=== PATIENT | male | born 1980 | race African-American/Black ===

== ENCOUNTER 2019-03-15 13:55 | Emergency (ER) | payer SELFPAY ==
--- NOTE | 2019-03-15 15:07 | RAD ---
LEFT HIP RADIOGRAPHS TWO VIEWS: 03/15/2019 PROVIDED CLINICAL HISTORY: Pain. COMPARISON: 09/19/2014 FINDINGS: Postoperative changes of left hip arthroplasty are demonstrated, without evidence for hardware compli cation. No evidence for fracture or other acute osseous abnormality. If there is persistent clinica l concern, conservative management and follow-up imaging are advised. IMPRESSION: As above. POS: OFF
--- NOTE | 2019-03-15 15:09 | RAD ---
LEFT KNEE FOUR VIEWS: HISTORY: Left knee pain. Recent left hip surgery. FINDINGS: Severe bony demineralization. Fairly extensive increase in the trabecular markings of the distal fem ur and proximal tibia. Given the previously noted abnormal changes involving the hips and left shoul davi, evidence for extensive avascular necrosis/bone infarcts, these changes could represent diffuse c hanges of bone infarcts. This could represent some component of severe disuse osteoporosis. IMPRESSION: 1. No evidence for acute fracture or dislocation. 2. Prominent abnormal trabecular appearance to the distal femur and proximal tibia. The possibiliti es include that of extensive bone infarcts. The possibility of some disuse osteoporosis, as well, is a consideration, but no acute fracture or dislocation. POS: [facility]
--- NOTE | 2019-03-15 16:07 | ULT ---
Venous duplex sonogram left lower extremity HISTORY: Left leg pain and edema. FINDINGS: The left common femoral vein and greater saphenous junction were evaluated along with the f emoral, deep femoral, popliteal, and posterior tibial veins. There is good color and spectral Doppler flow, compression, and augmentation. Reactive appearing lymph nodes at the left groin. Sonogr aphic survey of the area of pain inferior to the knee shows no focal lesion. IMPRESSION: No sonographic evidence of DVT within the left lower extremity.
[2019-03-15] MEDS ORDERED: Morphine 4 MG/ML VIAL ONE (18:08)
[2019-03-15] MEDS ORDERED: Ondansetron PF 4 MG/2 ML Vial ONE (18:08)
[2019-03-15 18:38] LABS: Hemoglobin 9.2 g/dL (14.0-18.0); Mean Corpuscular HGB CONC 33.7 g/dL (32.0-36.0); Mean Corpuscular Hemoglobin 29.6 pg (27.0-31.0); Mean Platelet Volume 7.4 fL (7.4-10.4); Platelet Count 491 thou/uL (130-400); RBC Distribution Width 18.9 % (11.5-14.5); Red Blood Cell (RBC) Count 3.12 mill/uL (4.70-6.10); White Blood Cell (WBC) Count 17.4 thou/uL (4.8-10.8)
[2019-03-15 18:54] LABS: ALT (SGPT) 24 U/L (8-55); AST (SGOT) 45 U/L (5-34); Albumin 3.8 g/dL (3.5-5.0); Alkaline Phosphatase 87 U/L (40-150); Anion Gap 11 mmol/L (10-20); BUN (Urea Nitrogen) 6 mg/dL (8.9-20.6); Bilirubin, Total 4.5 mg/dL (0.2-1.2); CRP (Inflammatory) 4.38 mg/dL (= or < 0.5); Calc. Creatinine Clearance 0 mL/min (70-130); Carbon Dioxide 29 mmol/L (22-29); Chloride 99 mmol/L (98-107); Estimated GFR-MDRD Greater than 90; Globulin 4.7 g/dL (2.4-3.5); Glucose 98 mg/dL (70-105); Protein, Total 8.5 g/dL (6.0-8.3); Sodium 136 mmol/L (136-145)
[2019-03-15 18:58] LABS: Anisocytosis SLIGHT = 6-15 cells (100X) (0-5/hpf); Band 1 % (5-11); Hypochromia SLIGHT = 6-15 cells (100X) (0-5/hpf); Lymphocytes 25 % (21-51); MDiff Complete? YES; Monocytes 6 % (0-10); Neutrophil 68 % (42-75); Platelet Morphology Comment Appears Increased; Poikilocytosis SLIGHT = 6-15 cells (100X) (0-5/hpf); Polychromasia SLIGHT = 2-3 cells (100X) (0-2/hpf); Sickle Cells SLIGHT = 1-5 cells (100X) (None Seen); Target Cells SLIGHT = 2-5 cells (100X) (0-1/hpf); Tear Drops SLIGHT = 2-5 cells (100X) (0-1/hpf)
[2019-03-15 19:04] LABS: Potassium 2.7 mmol/L (3.5-5.1)
[2019-03-15] MEDS ORDERED: Potassium Chloride 20 MEQ TAB ONE (19:21)
[2019-03-15] MEDS ORDERED: Potassium Chloride 20 MEQ/100 ML PREMIX BAG ONE (19:21)
[2019-03-15] MEDS ORDERED: HYDROcodone/Acetaminophen 5/325 mg Tablet ONE (19:50)
== END 2019-03-15 20:49 | disposition home or self-care (01) ==
LOC: ERS 13:55
DX: M87.9 Osteonecrosis, unspecified (principal); D57.1 Sickle-cell disease without crisis; Z87.891 Personal history of nicotine dependence
CPT/HCPCS: 80053; 83735; 85025; 85652; 86140; 96361; 96365; 96375; J2270; J2405; J3480

== ENCOUNTER 2019-04-13 21:36 | Emergency (ER) | payer OTHER, SELFPAY ==
[2019-04-13] MEDS ORDERED: diphenhydrAMINE 50 MG/ML VIAL ONE (22:37)
[2019-04-13] MEDS ORDERED: Acetaminophen 500 MG TAB ONE (22:38)
[2019-04-13 22:43] LABS: Hemoglobin 9.2 g/dL (14.0-18.0); Mean Corpuscular HGB CONC 33.4 g/dL (32.0-36.0); Mean Corpuscular Hemoglobin 29.2 pg (27.0-31.0); Mean Corpuscular Volume 87.4 fL (78.0-98.0); Mean Platelet Volume 6.1 fL (7.4-10.4); Platelet Count 446 thou/uL (130-400); RBC Distribution Width 18.8 % (11.5-14.5); Red Blood Cell (RBC) Count 3.14 mill/uL (4.70-6.10); White Blood Cell (WBC) Count 16.4 thou/uL (4.8-10.8)
[2019-04-13 22:51] LABS: Anisocytosis MODERATE=16-30 cells (100X) (0-5/hpf); Elliptocytes SLIGHT = 2-5 cells (100X) (0-1/hpf); Eosinophils 1 % (0-10); Lymphocytes 41 % (21-51); MDiff Complete? YES; Monocytes 3 % (0-10); Neutrophil 55 % (42-75); Platelet Morphology Comment Appears Increased; Schistocytes SLIGHT = 2-5 cells (100X) (0-1/hpf); Sickle Cells SLIGHT = 1-5 cells (100X) (None Seen); Target Cells SLIGHT = 2-5 cells (100X) (0-1/hpf)
[2019-04-13 22:54] LABS: ALT (SGPT) 10 U/L (8-55); AST (SGOT) 26 U/L (5-34); Albumin 3.8 g/dL (3.5-5.0); Alkaline Phosphatase 79 U/L (40-150); Anion Gap 12 mmol/L (10-20); BUN (Urea Nitrogen) 8 mg/dL (8.9-20.6); Bilirubin, Total 3.8 mg/dL (0.2-1.2); Calc. Creatinine Clearance 0 mL/min (70-130); Calcium 9.3 mg/dL (7.8-10.44); Carbon Dioxide 24 mmol/L (22-29); Chloride 104 mmol/L (98-107); Estimated GFR-MDRD Greater than 90; Globulin 5.1 g/dL (2.4-3.5); Glucose 90 mg/dL (70-105); Potassium 3.4 mmol/L (3.5-5.1); Protein, Total 8.9 g/dL (6.0-8.3); Sodium 137 mmol/L (136-145)
[2019-04-13 23:16] LABS: Reticulocyte Count 6.7 % (0.5-1.5)
== END 2019-04-14 04:30 | disposition home or self-care (01) ==
LOC: SCSER 21:36
DX: D57.00 Hb-SS disease with crisis, unspecified (principal); G89.29 Other chronic pain; M25.562 Pain in left knee; Z87.891 Personal history of nicotine dependence; Z79.891 Long term (current) use of opiate analgesic
CPT/HCPCS: 80053; 85025; 85046; 85652; 86140; 94760; 96361; 96365; 96375; J1170; J1200

== ENCOUNTER 2019-06-07 13:36 | Emergency (ER) | payer OTHER ==
[~2019-06-07 13:36] MED LIST: Iopamidol 370 76% 100 ML VIAL ONE
[2019-06-07] MEDS ORDERED: Morphine 4 MG/ML VIAL ONE ×2 (14:02→14:28)
[2019-06-07] MEDS ORDERED: Ondansetron PF 4 MG/2 ML Vial ONE (14:02)
[2019-06-07 14:11] LABS: Hemoglobin 9.7 g/dL (14.0-18.0); Mean Corpuscular HGB CONC 32.8 g/dL (32.0-36.0); Mean Corpuscular Hemoglobin 30.3 pg (27.0-31.0); Mean Corpuscular Volume 92.1 fL (78.0-98.0); Mean Platelet Volume 6.3 fL (7.4-10.4); Platelet Count 466 thou/uL (130-400); RBC Distribution Width 17.3 % (11.5-14.5); Red Blood Cell (RBC) Count 3.19 mill/uL (4.70-6.10); White Blood Cell (WBC) Count 17.7 thou/uL (4.8-10.8)
[2019-06-07 14:22] LABS: ALT (SGPT) 13 U/L (8-55); AST (SGOT) 28 U/L (5-34); Albumin 3.7 g/dL (3.5-5.0); Alkaline Phosphatase 92 U/L (40-150); Anion Gap 13 mmol/L (10-20); BUN (Urea Nitrogen) 9 mg/dL (8.9-20.6); Bilirubin, Total 3.8 mg/dL (0.2-1.2); CK (CPK) 23 U/L (30-200); Calc. Creatinine Clearance 0 mL/min (70-130); Calcium 9.2 mg/dL (7.8-10.44); Carbon Dioxide 25 mmol/L (22-29); Chloride 103 mmol/L (98-107); Estimated GFR-MDRD Greater than 90; Globulin 5.5 g/dL (2.4-3.5); Glucose 113 mg/dL (70-105); Potassium 3.7 mmol/L (3.5-5.1); Protein, Total 9.2 g/dL (6.0-8.3); Sodium 137 mmol/L (136-145)
[2019-06-07 14:31] LABS: Anisocytosis SLIGHT = 6-15 cells (100X) (0-5/hpf); Band 1 % (5-11); Eosinophils 1 % (0-10); Lymphocytes 31 % (21-51); MDiff Complete? YES; Monocytes 5 % (0-10); Neutrophil 61 % (42-75); Nucleated RBC 2 % (0); Platelet Morphology Comment Appears Increased; Polychromasia SLIGHT = 2-3 cells (100X) (0-2/hpf); Reactive Lymphocytes 1 % (0-10); Sickle Cells SLIGHT = 1-5 cells (100X) (None Seen); Stomatocytes SLIGHT = 2-5 cells (100X) (0-1/hpf); Target Cells MODERATE= 6-15 cells (100X) (0-1/hpf)
--- NOTE | 2019-06-07 14:31 | RAD ---
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 Patchy linear interstitial increased markings noted particularly in the left lower lobe new from the prior study but still represent intervening chronic linear and in terstitial disease. IMPRESSION: Evidence for sickle cell disease. Minimal increased linear interstitial parenchymal changes in the left lower lobe new from prior study possibly minimal pneumonitis versus a developing chronic change.
--- NOTE | 2019-06-07 15:21 | CT ---
CT arteriogram chest with IV contrast and 3-D imaging HISTORY: Chest pain. Sickle cell disease. FINDINGS: There is good contrast opacification pulmonary arteries and thoracic aorta with bovine orig in of the great vessels at the aortic arch. No enlarged lymph nodes. No free fluid or pneumothorax. Findings of sickle cell disease include diffuse sclerosis and autoinfarction of the spleen. Mild atel ectasis and scarring at the left lateral lung base. Minimal groundglass parenchymal opacity within the lateral aspect of the right upper lobe. IMPRESSION: No CT evidence of pulmonary embolus. Chronic findings of sickle cell disease.
== END 2019-06-07 15:42 | disposition home or self-care (01) ==
LOC: SCSER 13:36
DX: D57.00 Hb-SS disease with crisis, unspecified (principal); Z87.891 Personal history of nicotine dependence
CPT/HCPCS: 71046; 71275; 80053; 82550; 84484; 85025; 85046; 85379; 93005; 96374; 96375; J2270; J2405; Q9967

== ENCOUNTER 2019-07-22 17:45 | Inpatient (IN) | payer OTHER ==
[2019-07-22] MEDS ORDERED: Lidocaine 1% 20 ML MDV ONE (18:33)
[2019-07-22] MEDS ORDERED: Morphine 4 MG/ML VIAL ONE ×3 (18:35→22:01)
[2019-07-22] MEDS ORDERED: Ondansetron PF 4 MG/2 ML Vial ONE (18:36)
[2019-07-22] MEDS ORDERED: Piperacillin/Tazobactam 4.5 GM VIAL ONE (18:36)
[2019-07-22] MEDS ORDERED: Ketorolac Tromethamine 30 MG/ML VIAL ONE (19:08)
[2019-07-22] MEDS ORDERED: Sodium Chloride 0.9% 100 ML ONE (19:09)
--- NOTE | 2019-07-22 19:13 | RAD ---
PORTABLE CHEST: History: Patient with history of sickle cell. FINDINGS: Heart size appears borderline. Mediastinal structures are unremarkable. The lungs are clear of infilt rate. Changes of sickle cell are seen in both humeral heads. IMPRESSION: No active intrathoracic disease. POS: [facility]
[2019-07-22 19:18] LABS: Anisocytosis SLIGHT = 6-15 cells (100X) (0-5/hpf); Elliptocytes SLIGHT = 2-5 cells (100X) (0-1/hpf); Eosinophils 2 % (0-10); Hemoglobin 11.5 g/dL (14.0-18.0); Howell Jolly Bodies SLIGHT = 1-2 cells (100X) (None Seen); Lymphocytes 12 % (21-51); MDiff Complete? YES; Mean Corpuscular HGB CONC 34.8 g/dL (32.0-36.0); Mean Corpuscular Hemoglobin 31.1 pg (27.0-31.0); Mean Corpuscular Volume 89.2 fL (78.0-98.0); Mean Platelet Volume 5.7 fL (7.4-10.4); Monocytes 11 % (0-10); Neutrophil 75 % (42-75); Nucleated RBC 1 % (0); Platelet Count 432 thou/uL (130-400); Platelet Morphology Comment PLT clumps seen-ADEQ; Polychromasia SLIGHT = 2-3 cells (100X) (0-2/hpf); RBC Distribution Width 16.9 % (11.5-14.5); Target Cells SLIGHT = 2-5 cells (100X) (0-1/hpf); White Blood Cell (WBC) Count 26.1 thou/uL (4.8-10.8)
[2019-07-22 19:25] LABS: ALT (SGPT) 17 U/L (8-55); AST (SGOT) 30 U/L (5-34); Albumin 3.6 g/dL (3.5-5.0); Alkaline Phosphatase 115 U/L (40-150); Anion Gap 16 mmol/L (10-20); BUN (Urea Nitrogen) 10 mg/dL (8.9-20.6); Bilirubin, Total 2.8 mg/dL (0.2-1.2); Calc. Creatinine Clearance 0 mL/min (70-130); Calcium 9.2 mg/dL (7.8-10.44); Carbon Dioxide 25 mmol/L (22-29); Chloride 95 mmol/L (98-107); Estimated GFR-MDRD Greater than 90; Globulin 5.9 g/dL (2.4-3.5); Glucose 122 mg/dL (70-105); Potassium 4.2 mmol/L (3.5-5.1); Protein, Total 9.5 g/dL (6.0-8.3); Sodium 132 mmol/L (136-145)
[2019-07-22 20:26] LABS: Reticulocyte Count 9.6 % (0.5-1.5)
[2019-07-22 22:49] LABS: Bilirubin Small (Negative); Blood, Urine Large (Negative); Clarity Clear (Clear); Glucose, Urine (Dipstick) Negative (Negative); Leukocyte Negative (Negative); Nitrite Negative (Negative); Protein, Urine (Dipstick) > or equal to 300 mg/dL (Neg-Trace)
[2019-07-22 22:57] LABS: Bacteria/HPF None Seen HPF (None Seen); Mucous/LPF 1+ LPF (<2+); Squamous Epithelial None Seen HPF (0-3); WBC/HPF 0-3 HPF (0-3)
[2019-07-23] MEDS ORDERED: Ondansetron PF 4 MG/2 ML Vial IVP PRN (00:37)
[2019-07-23] MEDS ORDERED: Zolpidem Tartrate 5 MG TAB PO PRN (00:37)
[2019-07-23] MEDS ORDERED: HYDROcodone/Acetaminophen 7.5/325 mg Tablet PO PRN (00:37)
[2019-07-23] MEDS ORDERED: Acetaminophen 325 MG TAB PO PRN (00:37)
[2019-07-23] MEDS: Cefepime 1 GM in Sodium Chloride 0.9% 100 ML IVPB SCH ×2 (00:56→12:57)
[2019-07-23] MEDS: Sodium Chloride 0.9% 1,000 ML IV SCH ×4 (00:57→20:31)
--- NOTE | 2019-07-23 00:59 | PDOC.EVN ---
Event Note - Event Note Event Note: [id number] H&P dictated
[2019-07-23] MEDS ORDERED: Vancomycin HCl 1 GM in Premix Bag 1 BAG IVPB SCH (01:30)
[2019-07-23] MEDS: Morphine 4 MG/ML VIAL SLOW IVP PRN ×5 (01:55→22:43)
[2019-07-23 05:12] LABS: Anion Gap 10 mmol/L (10-20); BUN (Urea Nitrogen) 13 mg/dL (8.9-20.6); Calc. Creatinine Clearance 0 mL/min (70-130); Calcium 8.4 mg/dL (7.8-10.44); Carbon Dioxide 25 mmol/L (22-29); Chloride 101 mmol/L (98-107); Estimated GFR-MDRD Greater than 90; Glucose 79 mg/dL (70-105); Sodium 132 mmol/L (136-145)
[2019-07-23 05:49] LABS: Hemoglobin 10.4 g/dL (14.0-18.0); Mean Corpuscular HGB CONC 33.9 g/dL (32.0-36.0); Mean Corpuscular Hemoglobin 31.1 pg (27.0-31.0); Mean Corpuscular Volume 91.9 fL (78.0-98.0); Mean Platelet Volume 7.5 fL (7.4-10.4); Platelet Count 431 thou/uL (130-400); RBC Distribution Width 17.3 % (11.5-14.5); Red Blood Cell (RBC) Count 3.33 mill/uL (4.70-6.10); White Blood Cell (WBC) Count 23.3 thou/uL (4.8-10.8)
[2019-07-23 05:50] LABS: Anisocytosis SLIGHT = 6-15 cells (100X) (0-5/hpf); Eosinophils 1 % (0-10); Lymphocytes 32 % (21-51); MDiff Complete? YES; Monocytes 2 % (0-10); Neutrophil 65 % (42-75); Polychromasia SLIGHT = 2-3 cells (100X) (0-2/hpf); Sickle Cells SLIGHT = 1-5 cells (100X) (None Seen)
--- NOTE | 2019-07-23 07:45 | HP ---
CHIEF COMPLAINT: Right knee pain and swelling. HISTORY OF PRESENT ILLNESS: Mr. Holley is a 39-year-old male with past medical history of sickle cell disease, MRSA infection of the left knee, presents to the emergency room with pain and swelling of the right knee. Also patient had fever and chills. The patient was unable to bear weight in the right knee. The patient took Percocet at 2:00 p.m. without relief. Workup in the emergency room, the patient was found to have elevated WBC count of 26,000, febrile, elevated reticulocyte count 9. ED physician performed a tap of the right knee and initial results showed moderate WBCs, but no organisms. Septic workup done in the ED. The patient was started on IV antibiotics. The patient is being admitted to the hospital for further management. PAST MEDICAL HISTORY: 1. Sickle cell disease. 2. MRSA infection of the left knee. PAST SURGICAL HISTORY: Left knee scope. SOCIAL HISTORY: The patient drinks socially. He is a tobacco user, medical cannabis. FAMILY HISTORY: Reviewed and as per in the chart. HOME MEDICATIONS: Please see home medication reconciliation form for updated medications. ALLERGIES: LISTED ELSEWHERE IN THE CHART. REVIEW OF SYSTEMS: Review of 14 systems negative except what is mentioned in history of present illness. PHYSICAL EXAMINATION: GENERAL: Patient is awake, alert, in moderate distress secondary to pain. VITAL SIGNS: Temperature is 99.9, blood pressure 127/98, heart rate 103, respiratory rate is 20, pulse oximetry is 96% on room air. HEENT: Head and neck, normocephalic, atraumatic. Neck is supple. No JVD. CHEST: Fair bilateral air entry. HEART: S1, S2, regular, tachycardic. ABDOMEN: Soft, nontender. Bowel sounds present. NEUROLOGIC: Awake, alert, and oriented x3. No focal deficits. PSYCHIATRIC: Normal mood. EXTREMITIES: Right knee is swollen, tender, and warm with limitation of movement. LABORATORY DATA: WBC count is 26.1, hemoglobin 11.5, and platelets 432. Sodium is 132, potassium 4.2, BUN is 10, creatinine 1.0. Reticulocyte count 9.6. MICROBIOLOGY TYREL: Synovial fluid of the right knee, moderate wbc's seen, no organisms seen on Gram stain. ASSESSMENT AND PLAN: Mr. Holley is a 39-year-old male with sickle cell disease, presenting with right knee pain and swelling associated with fever and chills. 1. Sickle cell crisis. 2. Septic joint of right knee cannot be entirely excluded, patient has history of MRSA infection of the left knee in the past. 3. Sepsis secondary to the above/possible septic knee. PLAN: 1. Admit. 2. Septic workup including blood cultures and synovial fluid cultures. 3. Start the patient on IV antibiotics, vancomycin, and cefepime. 4. IV fluids. 5. Pain management. 6. Consult Orthopedics for evaluation and further recommendations. If pain and fever persist, to be assessed in a.m. 7. We will keep the patient n.p.o. after midnight until patient re-assessed in a.m. 8. Reconcile home medications. 9. DVT prophylaxis, early ambulation/SCD. 10. Expected length of stay, 2 midnights or more. Job ID: [id number]
[2019-07-23] MEDS: Famotidine 20 MG TAB PO SCH ×2 (07:55→20:30)
[2019-07-23] MEDS ORDERED: Ketorolac Tromethamine 30 MG/ML VIAL IVP PRN (08:27)
--- NOTE | 2019-07-23 08:45 | CON ---
DATE OF CONSULTATION: We were asked by hospitalist to see the patient. The patient came into the hospital in sickle cell crisis. He also has some right knee pain. Knee was tapped in the ER. He states it felt a little better after some of the fluid was relieved, but he is still having problems bending it and putting any weight on it. The patient had some problems earlier this year in the March timeframe with left knee pain. At that point, he was given some Percocet in p.r.n. basis and uses these intermittently. In 2016, he had his left hip replaced due to avascular necrosis. Currently, very pleasant, in no acute distress, in room 3334, resting in bed. No other complaints other than the knee pain. PAST MEDICAL HISTORY: Sickle cell disease, MRSA infection of left knee, avascular necrosis, left hip surgeries, left knee scope, and left hip replacement. SOCIAL HISTORY: He works in [employer]. He has a desk job. Has a very light tobacco use, 5 cigarettes a day. Drinks infrequently. FAMILY HISTORY: Per this case is noncontributory. CURRENT MEDICATIONS: He is taking Percocet p.r.n. ALLERGIES: NO KNOWN DRUG ALLERGIES. REVIEW OF SYSTEMS: Obviously recent sickle cell crisis and right knee pain. Rest of review of systems negative. PHYSICAL EXAMINATION: GENERAL: Well-nourished, well-developed male, resting in bed, currently in no acute distress unless he moves the right knee. Speech clear. Affect pleasant. Answer questions appropriately. Alert and oriented x3. HEENT: Normal exam. Face symmetric. Tongue midline. NECK: Supple. Trachea midline. RESPIRATORY: No distress. Respirations 16 a minute. EXTREMITIES: Upper extremities, equal size, shape, symmetry. Normal bulk and tone. Lower extremities, equal size, shape, symmetry. Normal bulk and tone with exception of the right knee, which is a little warm to the touch and definitely has some edema. I did not see a big fluid shifts with tapping on the knee, but he has lot of pain with moving that knee. Otherwise, sensations to lower extremities are intact. DP and PT pulses are equal. ASSESSMENT: 1. Sickle cell crisis. 2. Right knee effusion, tapped in the ER. PLAN: Cultures, labs are ongoing. We will get an x-ray of the right knee. We will talk to the patient this afternoon, looking at his knee on the left in March of this year, it looks like he has multiple infarcts to the bone. I spoke to the patient about this. He seems to remember someone talking about the infarcts in his leg. The patient may need to see theater education teacher. He is currently being worked up by hospitalist and we will follow his labs and the patient through his hospital stay. Job ID: [id number]
[2019-07-23] MEDS ORDERED: Vancomycin HCl 1 GM in Sodium Chloride 0.9% 250 ML 300 ML IVPB SCH (09:00)
--- NOTE | 2019-07-23 10:33 | RAD ---
TWO VIEW RIGHT KNEE: INDICATION: Swelling and pain. FINDINGS: No fracture or dislocation. Minimal joint capsular distention of the suprapatellar bursa. There is mild osseous demineralization. IMPRESSION: 1. No acute osseous abnormality. 2. Minimal joint capsular distention. 3. Focal areas of osseous demineralization. No overlying periosteal reaction. Given patient's age, demineralization is not typical. Therefore, the possibility of underlying metabolic bone disease or marrow infiltrative process is not excluded. Correlating to a prior contralateral, left knee radiog raph 03/15/2019, a similar-appearing process of the left knee is also present. Correlate with medical history in this regard and, as necessary, imaging followup may be obtained. POS: [facility]
[2019-07-23] MEDS: HYDROcodone/Acetaminophen 7.5/325 mg Tablet PO PRN ×3 (11:42→20:30)
[2019-07-23] MEDS: Vancomycin HCl 1 GM in Premix Bag 1 BAG IVPB SCH (14:13)
[2019-07-24] MEDS: HYDROcodone/Acetaminophen 7.5/325 mg Tablet PO PRN ×3 (00:41→12:01)
[2019-07-24] MEDS: Cefepime 1 GM in Sodium Chloride 0.9% 100 ML IVPB SCH ×2 (00:42→14:15)
[2019-07-24] MEDS: Sodium Chloride 0.9% 1,000 ML IV SCH ×2 (02:51→20:45)
[2019-07-24] MEDS: Vancomycin HCl 1 GM in Premix Bag 1 BAG IVPB SCH ×2 (02:51→15:17)
[2019-07-24] MEDS: Morphine 4 MG/ML VIAL SLOW IVP PRN ×4 (02:55→19:17)
[2019-07-24 07:57] VITALS: BMI 25.8
[2019-07-24] MEDS: Famotidine 20 MG TAB PO SCH ×2 (08:44→20:06)
[2019-07-24] MEDS ORDERED: oxyCODONE 5 MG TAB PO PRN (13:50)
--- NOTE | 2019-07-24 13:58 | PDOC.HOSPP ---
- Subjective Encounter Date: 07/24/19 Subjective: Slightly more comfortable right knee today, rates 8/10, worse with movement or activity. Knee remains warm and swollen. Tolerating antibiotics, no N/V, no diarrhea. At home uses half of a Percocet 10/325 about three times daily for chronic right knee and general chronic pain in the face of sickle cell anemia. Drinking copious fluids. - Objective Vital Signs & Weight: Vital Signs (12 hours) Temp Pulse Resp BP Pulse Ox 07/24/19 07:55 97.3 F L 89 12 114/56 L 92 L 07/24/19 03:56 98.7 F 98 16 118/65 94 L Weight Weight 175 lb I&O: 07/23/19 07/24/19 07/25/19 06:59 06:59 06:59 Intake Total 720 2800 Output Total 500 3000 Balance 220 -200 Result Diagrams: 07/23/19 04:23 07/23/19 04:23 Hospitalist ROS - Medication Medications: Active Medications Generic Name Dose Route Start Last Admin Trade Name Caterina PRN Reason Stop Dose Admin Famotidine 20 mg 07/23/19 09:00 07/24/19 08:44 Pepcid PO 20 mg BID SIDDHARTHA Administration Cefepime HCl 1 gm/ Sodium 100 mls @ 200 mls/hr 07/23/19 01:00 07/24/19 00:42 Chloride IVPB 100 mls 0100,1300 SIDDHARTHA Administration Vancomycin HCl 1 gm/ Device 200 mls @ 200 mls/hr 07/23/19 14:00 07/24/19 02: 51 IVPB 200 mls 0200,1400 SIDDHARTHA Administration - Exam General - other findings: fairly comfortable Eye: scleral icterus Eye - other findings: mild ENT: moist mucosa Neck: supple Heart - other findings: tachycardic, hyperdynamic precordium Respiratory: CTAB Gastrointestinal: soft, non-tender, non-distended Extremities: no edema Extremities - other findings: palpable warmth, effusion right knee Skin: no rashes Neurological: no weakness Musculoskeletal: normal tone Psychiatric: A&O x 3 Hosp A/P (1) Bone infarction Code(s): M87.9 - OSTEONECROSIS, UNSPECIFIED Status: Acute (2) Chronic pain syndrome Code(s): G89.4 - CHRONIC PAIN SYNDROME Status: Acute (3) Leucocytosis Code(s): D72.829 - ELEVATED WHITE BLOOD CELL COUNT, UNSPECIFIED Status: Acute (4) Sickle cell anemia with crisis Code(s): D57.00 - HB-SS DISEASE WITH CRISIS, UNSPECIFIED Status: Acute (5) Thrombocytosis Status: Acute - Plan Right knee pain with warm/effusion cultures negative thus far; continue empiric abx for now. May be non-infectious inflammatory reaction, bone infarction mentioned per ortho, consult appricated. check AM CBC/CRP Chronic pain - rotated pain medication; may need titration based on physiologic tolerance expected SL IVFs Elevate right leg
[2019-07-24] MEDS: oxyCODONE 5 MG TAB PO PRN ×2 (16:44→20:50)
--- NOTE | 2019-07-24 21:40 | CON ---
DATE OF CONSULTATION: REASON FOR CONSULTATION: Sickle cell. 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 He had a leukocytosis of 26,000 and hemoglobin of 11.5. In the ER, he has a history of MRSA in his left knee. He underwent an x-ray of his right knee, which showed and right knee effusion. It was tapped in the ER. He was started on IV fluids and pain medication, and admitted for further treatment. The patient has not seen a bilingual speech therapist for his sickle cell in many years. He was on hydroxyurea at one point at younger age, but he was not compliant with his medicines. He moved to this area several years ago. States his sickle-cell has been fairly well managed until last 2 years when he has begun to have more frequent crises. He has not required admission for several years. PAST MEDICAL HISTORY: 1. Sickle cell anemia. 2. MRSA of the left knee. PAST SURGICAL HISTORY: Left knee arthroscopy. ALLERGIES: NO KNOWN DRUG ALLERGIES. HOME MEDICATIONS: Oxycodone 10 mg p.r.n. FAMILY HISTORY: Sickle cell. SOCIAL HISTORY: Drinks socially. Uses tobacco and marijuana. REVIEW OF SYSTEMS: Ten-point review of systems is negative except for right knee and morris pain. PHYSICAL EXAMINATION: VITAL SIGNS: Temperature is 97.3, pulse is 89, respiratory rate 12, blood pressure is 114/56. He is 92% on room air. GENERAL: This is a well-developed, well-nourished male, in no acute distress. HEENT: Normocephalic and atraumatic. Pupils are equal and reactive to light. NECK: Supple. CV: Regular rate and rhythm. LUNGS: Clear anteriorly. ABDOMEN: Soft and nontender. Bowel sounds are positive. EXTREMITIES: He has swelling in his right lower extremity. NEUROLOGIC: He is nonfocal. PSYCH: He is alert and oriented and appropriate. PERTINENT LABS AND X-RAYS: Current WBCs 23.3, hemoglobin 10.4, hematocrit 30.6, platelet count is 431,000. He has 65% neutrophils, 32% lymphocytes, retic count is 9.6. Sodium is 132, potassium 4.0, chloride 101, CO2 is 25, BUN is 13, creatinine 0.87, calcium is 8.4. ASSESSMENT: 1. Sickle cell disease. 2. Right knee effusion. DISCUSSION: The patient does not appear to be in a sickle cell crisis. His O2 saturation has been adequate and his hemoglobin is stable at 10.4. We would continue IV fluids and pain medication. We did discuss the patient's need to go to a sickle cell specialist in [place] as he would benefit from hydroxyurea. The patient says he would think about it. Case has been discussed with Dr. Arellano and Dr. Lawrence. Thank you for the consult. Job ID: [id number]
[2019-07-25] MEDS: oxyCODONE 5 MG TAB PO PRN ×5 (00:32→20:17)
[2019-07-25] MEDS: Cefepime 1 GM in Sodium Chloride 0.9% 100 ML IVPB SCH ×2 (00:32→13:17)
[2019-07-25] MEDS: Vancomycin HCl 1 GM in Premix Bag 1 BAG IVPB SCH ×2 (01:24→14:01)
[2019-07-25] MEDS: Morphine 4 MG/ML VIAL SLOW IVP PRN ×4 (02:52→18:42)
[2019-07-25 06:10] LABS: Anion Gap 9 mmol/L (10-20); BUN (Urea Nitrogen) 5 mg/dL (8.9-20.6); CRP (Inflammatory) 12.84 mg/dL (= or < 0.5); Calc. Creatinine Clearance 155 mL/min (70-130); Calcium 8.6 mg/dL (7.8-10.44); Carbon Dioxide 24 mmol/L (22-29); Chloride 103 mmol/L (98-107); Estimated GFR-MDRD Greater than 90; Glucose 130 mg/dL (70-105); Potassium 3.6 mmol/L (3.5-5.1); Sodium 132 mmol/L (136-145)
[2019-07-25 06:12] LABS: Band 2 % (5-11); Eosinophils 3 % (0-10); Hemoglobin 8.6 g/dL (14.0-18.0); Lymphocytes 19 % (21-51); MDiff Complete? YES; Mean Corpuscular HGB CONC 32.7 g/dL (32.0-36.0); Mean Corpuscular Hemoglobin 29.8 pg (27.0-31.0); Mean Corpuscular Volume 91.3 fL (78.0-98.0); Mean Platelet Volume 7.3 fL (7.4-10.4); Monocytes 11 % (0-10); Neutrophil 65 % (42-75); Platelet Count 439 thou/uL (130-400); RBC Distribution Width 18.2 % (11.5-14.5); Red Blood Cell (RBC) Count 2.87 mill/uL (4.70-6.10); White Blood Cell (WBC) Count 19.4 thou/uL (4.8-10.8)
[2019-07-25] MEDS: Famotidine 20 MG TAB PO SCH ×2 (08:08→20:17)
--- NOTE | 2019-07-25 12:45 | PQF ---
DATE: 07-25-19 ATTN: DR. LENORE MARIE Please exercise your independent, professional judgment in responding to the clarification form. Clinical indicators are provided on the bottom of this form for your review Please check appropriate box(s) to clarify if the following diagnosis has been ruled in or ruled out: SEPSIS [ ] Ruled in diagnosis [ ] Continue to treat [ ] Resolved [ x ] Ruled out diagnosis [ ] Other diagnosis [ ] Unable to determine In addition, please specify: Present on Admission (POA): [ ] Yes [ x ] No [ ] Unable to determine For continuity of documentation, please document condition throughout progress notes and discharge summary. Thank You. CLINICAL INDICATORS - SIGNS / SYMPTOMS / LABS: H&P 07-22-19: SICKLE CELL CRISIS, SEPTIC JOINT OF R KNEE CANNOT BE ENTIRELY EXCLUDED, PT HAS HX OF MRSA INFECTION OF THE L KNEE IN THE PAST, SEPSIS SECONDARY TO ABOVE/ POSSIBLE SEPTIC KNEE, SEPTIC WORKUP INCLUDING BC AND SYNOVIAL FLUID CULTURES WBC: 07-22-19: 26.1 07-23-19: 23.3 07-25-19: 19.4 CRP: 07-25-19: 12.84 WBC: 07-24-19: 100.3, 100.0 RISK FACTORS: H&P 07-22-19: SICKLE CELL CRISIS, SEPTIC JOINT OF R KNEE CANNOT BE ENTIRELY EXCLUDED, PT HAS HX OF MRSA INFECTION OF THE L KNEE IN THE PAST, SEPSIS SECONDARY TO ABOVE/ POSSIBLE SEPTIC KNEE, SEPTIC WORKUP INCLUDING BC AND SYNOVIAL FLUID CULTURES TREATMENTS: ER NOTE 07-22-19: IVF NS, ZOSYN IV, VANCOMYCIN IV MAR: 07-23-19: VANCOMYCIN IV, IVF NS SAP [employer] Win[employer](This form is maintained as a part of the permanent medical record) 2014 [employer]. All Rights Reserved MARLYS [email or web address] Office: [phone] [facility] BROADWAY CAMPUSDianne
--- NOTE | 2019-07-25 12:57 | PQF ---
DATE: 07-25-19 ATTN: DR. LENORE MARIE Please exercise your independent, professional judgment in responding to the clarification form. Clinical indicators are provided on the bottom of this form for your review Please check appropriate box(s): [ ] Hyponatremia please specify etiology, if known [ x ] Insignificant Lab Values [ ] Other diagnosis [ ] Unable to determine In addition, please specify: Present on Admission (POA): [ x ] Yes [ ] No [ ] Unable to determine CLINICAL INDICATORS - SIGNS / SYMPTOMS / LABS: SODIUM: 07-22-19: 132 07-23-19: 132 07-25-19: 132 RISK FACTORS: H&P: HX OF SICKLE CELL DISEASE, HX MRSA INFECTION OF THE LEFT KNEE, SMOKER ER NOTE 07-22-19: OXYCODONE PO PRN TREATMENTS: ER NOTES 07-22-19: IVF NS X 2 L SERIES OF LABS/MONITORING (This form is maintained as a part of the permanent medical record) 2014 [employer] All Rights Reserved MARLYS [email or web address] Office: [phone] [facility] HOSPITALDianne
--- NOTE | 2019-07-25 18:54 | PDOC.HOSPP ---
- Subjective Encounter Date: 07/25/19 Encounter Time: 18:40 Subjective: f/u for suspected sickle cell crisis and R knee effusion with negative aspiration on Cefepime/Vancomycin. Feels better overall today and bore more weight on the RLE today with PT. No fever or chills. - Objective Vital Signs & Weight: Vital Signs (12 hours) Temp Pulse Resp BP Pulse Ox 07/25/19 16:00 98.7 F 94 18 117/56 L 98 07/25/19 11:49 98.8 F 80 18 133/63 98 07/25/19 08:00 97.6 F 91 24 H 114/59 L 97 Weight Weight 175 lb I&O: 07/24/19 07/25/19 07/26/19 06:59 06:59 06:59 Intake Total 2800 1200 Output Total 3000 2500 Balance -200 -2500 1200 Result Diagrams: 07/25/19 05:26 07/25/19 05:26 Additional Labs: Microbiology 07/22/19 18:56 Venous blood - Right Arm Blood Culture - Preliminary NO GROWTH AT 48 HOURS 07/22/19 18:51 Synovial Fluid Culture - Pending Body Fluid Culture - Preliminary 07/22/19 18:43 Venous blood - Left Hand Blood Culture - Preliminary NO GROWTH AT 48 HOURS Laboratory Tests 07/22/19 07/22/19 07/23/19 18:35 18:35 04:23 WBC 26.1 H 23.3 H Plt Count 432 H 431 H Retic Count 9.6 H Immature Retic Fraction 0.291 C-Reactive Protein 07/25/19 05:26 WBC Plt Count Retic Count Immature Retic Fraction C-Reactive Protein 12.84 H Radiology Reviewed by me: Yes (R knee x-ray - no acute fx, ? osteonecrosis/ demineralization) Hospitalist ROS - Medication Medications: Active Medications Generic Name Dose Route Start Last Admin Trade Name Freq PRN Reason Stop Dose Admin Acetaminophen 650 mg 07/23/19 00:37 07/24/19 20:47 Tylenol PO 650 mg Q4H PRN Administration Headache/Fever/Mild Pain (1-3) Famotidine 20 mg 07/23/19 09:00 07/25/19 08:08 Pepcid PO 20 mg BID SIDDHARTHA Administration Cefepime HCl 1 gm/ Sodium 100 mls @ 200 mls/hr 07/23/19 01:00 07/25/19 13:17 Chloride IVPB 100 mls 0100,1300 SIDDHARTHA Administration Vancomycin HCl 1 gm/ Device 200 mls @ 200 mls/hr 07/23/19 14:00 07/25/19 14: 01 IVPB 200 mls 0200,1400 SIDDHARTHA Administration Ketorolac Tromethamine 15 mg 07/23/19 08:27 07/25/19 08:04 Toradol IVP 07/28/19 08:28 15 mg Q6H PRN Administration Pain Morphine Sulfate 4 mg 07/24/19 13:51 07/25/19 18:42 Morphine SLOW IVP 4 mg Q4H PRN Administration Breakthrough Pain Oxycodone HCl 10 mg 07/24/19 13:50 07/25/19 15:35 Oxycodone Ir PO 10 mg Q4H PRN Administration pain 6-10 - Exam General Appearance: NAD, awake alert Eye: PERRL, anicteric sclera ENT: normocephalic atraumatic, no oropharyngeal lesions Neck: supple, symmetric, no JVD, no thyromegaly, no lymphadenopathy Heart: RRR, no murmur, no gallops, no rubs, normal peripheral pulses Respiratory: CTAB, no wheezes, no rales, no ronchi, normal chest expansion Gastrointestinal: soft, non-tender, non-distended, normal bowel sounds Extremities - other findings: R knee with effusion extending to proximal tibia, +TTP Skin: normal turgor, no lesions Neurological: cranial nerve grossly intact, no focal deficits, no new deficit Musculoskeletal: normal tone, normal strength Psychiatric: normal affect, A&O x 3 Hosp A/P (1) Effusion, right knee Code(s): M25.461 - EFFUSION, RIGHT KNEE Status: Acute Plan: Sterile effusion currently, continue empiric Cefepime/Vanc given clinical improvement in sx, pain control, ROM excercises (2) Thrombocytosis Status: Acute Plan: Due to Sickle Cell disease (3) Leucocytosis Code(s): D72.829 - ELEVATED WHITE BLOOD CELL COUNT, UNSPECIFIED Status: Acute Plan: Appears chronic on review of EMR, serial monitoring (4) Sickle cell anemia with crisis Code(s): D57.00 - HB-SS DISEASE WITH CRISIS, UNSPECIFIED Status: Acute Plan: Continue pain control with Morphine Sulfate, [place], IVF's, serial CBC - Plan continue antibiotics, PT/OT, out of bed/ambulate, DVT proph w/SCDs Stable currently Continue IVF's Continue Morphine Sulfate IV Check RLE doppler to r/o DVT AM lab: CBC, Uric acid
--- NOTE | 2019-07-25 20:53 | ULT ---
EXAM: Right lower extremity venous ultrasound HISTORY: Right lower extremity pain and edema for 6 days COMPARISON: None TECHNIQUE: Multiplanar grayscale and color Doppler images were obtained in a right lower extremity ve nous ultrasound. Spectral analysis of the Doppler waveforms were performed. FINDINGS: The common femoral vein, profunda femoral vein, superficial femoral vein, and popliteal vei n are normal in appearance without visible thrombus. These vessels demonstrate normal compression, flow, and augmentation. The posterior tibial vein and greater saphenous vein are patent without evidence of thrombus. Prominent lymph nodes are seen in the right inguinal region. IMPRESSION: No evidence of DVT.
[2019-07-25] MEDS: Ketorolac Tromethamine 30 MG/ML VIAL IVP PRN (21:49)
[2019-07-26] MEDS: Cefepime 1 GM in Sodium Chloride 0.9% 100 ML IVPB SCH ×2 (00:02→13:42)
[2019-07-26] MEDS: Morphine 4 MG/ML VIAL SLOW IVP PRN ×4 (00:09→21:24)
[2019-07-26] MEDS: Vancomycin HCl 1 GM in Premix Bag 1 BAG IVPB SCH ×2 (01:13→14:28)
[2019-07-26] MEDS: oxyCODONE 5 MG TAB PO PRN ×4 (01:16→18:48)
[2019-07-26] MEDS: Ketorolac Tromethamine 30 MG/ML VIAL IVP PRN ×2 (07:10→18:53)
[2019-07-26 07:38] LABS: Eosinophils 3 % (0-10); Hemoglobin 8.2 g/dL (14.0-18.0); Lymphocytes 19 % (21-51); MDiff Complete? YES; Mean Corpuscular HGB CONC 33.2 g/dL (32.0-36.0); Mean Corpuscular Hemoglobin 29.8 pg (27.0-31.0); Mean Corpuscular Volume 89.9 fL (78.0-98.0); Mean Platelet Volume 6.7 fL (7.4-10.4); Monocytes 12 % (0-10); Myelocyte 1 % (0-0); Neutrophil 64 % (42-75); Platelet Count 504 thou/uL (130-400); Platelet Morphology Comment Appears Increased; Polychromasia MODERATE = 3-4 cells (100X) (0-2/hpf); RBC Distribution Width 18.4 % (11.5-14.5); Red Blood Cell (RBC) Count 2.75 mill/uL (4.70-6.10); Target Cells SLIGHT = 2-5 cells (100X) (0-1/hpf); White Blood Cell (WBC) Count 14.2 thou/uL (4.8-10.8)
[2019-07-26] MEDS: Famotidine 20 MG TAB PO SCH ×2 (08:02→20:11)
--- NOTE | 2019-07-26 22:53 | PDOC.HOSPP ---
- Subjective Encounter Date: 07/26/19 Encounter Time: 17:25 Subjective: f/u for R knee effusion, SS dx on IV Cefepime/Vancomycin. Feels better overall and ambulating in halls. Swelling decreased around R knee. - Objective Vital Signs & Weight: Vital Signs (12 hours) Temp Pulse Resp BP Pulse Ox 07/26/19 20:45 98.8 F 92 16 120/59 L 95 07/26/19 15:04 98.5 F 96 18 130/62 97 07/26/19 11:01 98.1 F 76 18 130/64 100 Weight Weight 175 lb I&O: 07/25/19 07/26/19 07/27/19 06:59 06:59 06:59 Intake Total 1200 240 Output Total 2500 1500 1525 Balance -2500 -300 -1285 Result Diagrams: 07/26/19 06:52 07/25/19 05:26 Additional Labs: Microbiology 07/22/19 18:56 Venous blood - Right Arm Blood Culture - Preliminary NO GROWTH AT 48 HOURS 07/22/19 18:51 Synovial Fluid Culture - Pending Body Fluid Culture - Preliminary 07/22/19 18:43 Venous blood - Left Hand Blood Culture - Preliminary NO GROWTH AT 48 HOURS Laboratory Tests 07/22/19 07/22/19 07/23/19 18:35 18:35 04:23 WBC 26.1 H 23.3 H Plt Count 432 H 431 H Retic Count 9.6 H Immature Retic Fraction 0.291 C-Reactive Protein 07/25/19 05:26 WBC Plt Count Retic Count Immature Retic Fraction C-Reactive Protein 12.84 H Radiology Reviewed by me: Yes (RLE dopp - neg DVT) Hospitalist ROS - Medication Medications: Active Medications Generic Name Dose Route Start Last Admin Trade Name Freq PRN Reason Stop Dose Admin Acetaminophen 650 mg 07/23/19 00:37 07/24/19 20:47 Tylenol PO 650 mg Q4H PRN Administration Headache/Fever/Mild Pain (1-3) Famotidine 20 mg 07/23/19 09:00 07/26/19 20:11 Pepcid PO 20 mg BID SIDDHARTHA Administration Cefepime HCl 1 gm/ Sodium 100 mls @ 200 mls/hr 07/23/19 01:00 07/26/19 13:42 Chloride IVPB 100 mls 0100,1300 SIDDHARTHA Administration Vancomycin HCl 1 gm/ Device 200 mls @ 200 mls/hr 07/23/19 14:00 07/26/19 14: 28 IVPB 200 mls 0200,1400 SIDDHARTHA Administration Ketorolac Tromethamine 30 mg 07/25/19 19:01 07/26/19 18:53 Toradol IVP 07/28/19 08:28 30 mg Q6H PRN Administration Pain Morphine Sulfate 4 mg 07/24/19 13:51 07/26/19 21:24 Morphine SLOW IVP 4 mg Q4H PRN Administration Breakthrough Pain Oxycodone HCl 10 mg 07/24/19 13:50 07/26/19 18:48 Oxycodone Ir PO 10 mg Q4H PRN Administration pain 6-10 - Exam General Appearance: NAD, awake alert Eye: PERRL, anicteric sclera ENT: normocephalic atraumatic, no oropharyngeal lesions Neck: supple, symmetric, no JVD, no thyromegaly, no lymphadenopathy Heart: RRR, no murmur, no gallops, no rubs, normal peripheral pulses Respiratory: CTAB, no wheezes, no rales, no ronchi, normal chest expansion Gastrointestinal: soft, non-tender, non-distended, normal bowel sounds, no palpable masses Extremities: no cyanosis Extremities - other findings: R knee with mild effusion, decreased edema Skin: normal turgor, no lesions Neurological: cranial nerve grossly intact, no focal deficits, no new deficit Musculoskeletal: normal tone, normal strength Psychiatric: normal affect, normal behavior, A&O x 3 Hosp A/P (1) Effusion, right knee Code(s): M25.461 - EFFUSION, RIGHT KNEE Status: Acute Plan: Sterile effusion currently, continue empiric IV Vanc/Cefepime, pain control, ambulate PRN (2) Thrombocytosis Status: Chronic (3) Leucocytosis Code(s): D72.829 - ELEVATED WHITE BLOOD CELL COUNT, UNSPECIFIED Status: Chronic Plan: Improved, serial monitoring (4) Sickle cell anemia with crisis Code(s): D57.00 - HB-SS DISEASE WITH CRISIS, UNSPECIFIED Status: Acute Plan: Suspected, continue pain control, IVF's, serial H/H - Plan plan discussed w/ family, continue antibiotics, social worker aide, out of bed/ ambulate Stable currently Continue IVF's Continue Morphine Sulfate IV Pain control as clinically indicated AM lab: CBC Likely home in am
[2019-07-27] MEDS: Cefepime 1 GM in Sodium Chloride 0.9% 100 ML IVPB SCH ×2 (00:30→13:22)
[2019-07-27] MEDS: Ketorolac Tromethamine 30 MG/ML VIAL IVP PRN ×3 (00:34→16:09)
[2019-07-27] MEDS: oxyCODONE 5 MG TAB PO PRN ×4 (00:35→20:49)
[2019-07-27] MEDS: Vancomycin HCl 1 GM in Premix Bag 1 BAG IVPB SCH ×2 (01:11→14:22)
[2019-07-27 02:11] LABS: Vancomycin, Trough 23.6 ug/mL
[2019-07-27 02:15] LABS: Eosinophils 6 % (0-10); Hemoglobin 7.8 g/dL (14.0-18.0); Lymphocytes 31 % (21-51); MDiff Complete? YES; Mean Corpuscular HGB CONC 32.4 g/dL (32.0-36.0); Mean Corpuscular Volume 89.6 fL (78.0-98.0); Mean Platelet Volume 7.1 fL (7.4-10.4); Monocytes 7 % (0-10); Neutrophil 56 % (42-75); Nucleated RBC 1 % (0); Platelet Count 513 thou/uL (130-400); Platelet Morphology Comment Appears Increased; RBC Distribution Width 18.2 % (11.5-14.5)
[2019-07-27] MEDS: Famotidine 20 MG TAB PO SCH ×2 (08:12→20:49)
[2019-07-27 13:11] LABS: A/G Ratio 0.6 (0.7-1.7); Albumin 2.5 g/dL (2.9-4.4); Alpha 1 0.5 g/dL (0.0-0.4); Alpha 2 0.7 g/dL (0.4-1.0); Gamma 2.3 g/dL (0.4-1.8); Globulin, Total 4.4 g/dL (2.2-3.9); M-Spike Not Observed g/dL (Not Observed); Protein Electrophoresis Intrp Note: (.)
[2019-07-27 13:38] LABS: Hemoglobin 9.5 g/dL (14.0-18.0); Platelet Count 665 thou/uL (130-400)
--- NOTE | 2019-07-27 15:26 | PDOC.HOSPP ---
- Subjective Encounter Date: 07/27/19 Encounter Time: 10:15 Subjective: f/u for R knee effusion on empiric Cefepime/Vanc with sterile knee cx. Still with some swelling and pain when touching it. - Objective Vital Signs & Weight: Vital Signs (12 hours) Temp Pulse Resp BP Pulse Ox 07/27/19 11:25 98.0 F 80 20 118/58 L 100 07/27/19 07:35 98.2 F 78 14 105/54 L 97 07/27/19 03:45 98.3 F 80 16 123/64 96 Weight Weight 175 lb I&O: 07/26/19 07/27/19 07/28/19 06:59 06:59 06:59 Intake Total 1200 240 480 Output Total 1500 1525 Balance -300 -1285 480 Result Diagrams: 07/27/19 12:53 07/25/19 05:26 Additional Labs: Microbiology 07/22/19 18:56 Venous blood - Right Arm Blood Culture - Preliminary NO GROWTH AT 48 HOURS 07/22/19 18:51 Synovial Fluid Culture - Pending Body Fluid Culture - Preliminary 07/22/19 18:43 Venous blood - Left Hand Blood Culture - Preliminary NO GROWTH AT 48 HOURS Laboratory Tests 07/22/19 07/22/19 07/23/19 18:35 18:35 04:23 WBC 26.1 H 23.3 H Hgb Plt Count 432 H 431 H Retic Count 9.6 H Immature Retic Fraction 0.291 C-Reactive Protein 07/25/19 07/26/19 07/27/19 05:26 06:52 01:32 WBC 14.2 H 16.0 H Hgb 8.2 L 7.8 L Plt Count 504 H 513 H Retic Count Immature Retic Fraction C-Reactive Protein 12.84 H Hospitalist ROS - Medication Medications: Active Medications Generic Name Dose Route Start Last Admin Trade Name Freq PRN Reason Stop Dose Admin Acetaminophen 650 mg 07/23/19 00:37 07/24/19 20:47 Tylenol PO 650 mg Q4H PRN Administration Headache/Fever/Mild Pain (1-3) Famotidine 20 mg 07/23/19 09:00 07/27/19 08:12 Pepcid PO 20 mg BID SIDDHARTHA Administration Cefepime HCl 1 gm/ Sodium 100 mls @ 200 mls/hr 07/23/19 01:00 07/27/19 13:22 Chloride IVPB 100 mls 0100,1300 SIDDHARTHA Administration Vancomycin HCl 1 gm/ Device 200 mls @ 200 mls/hr 07/23/19 14:00 07/27/19 14: 22 IVPB 200 mls 0200,1400 SIDDHARTHA Administration Ketorolac Tromethamine 30 mg 07/25/19 19:01 07/27/19 08:21 Toradol IVP 07/28/19 08:28 30 mg Q6H PRN Administration Pain Morphine Sulfate 4 mg 07/24/19 13:51 07/26/19 21:24 Morphine SLOW IVP 4 mg Q4H PRN Administration Breakthrough Pain Oxycodone HCl 10 mg 07/24/19 13:50 07/27/19 13:21 Oxycodone Ir PO 10 mg Q4H PRN Administration pain 6-10 - Exam General Appearance: NAD, awake alert Eye: PERRL, anicteric sclera ENT: normocephalic atraumatic, no oropharyngeal lesions Neck: supple, symmetric, no JVD, no thyromegaly, no lymphadenopathy Heart: RRR, no murmur, no gallops, no rubs, normal peripheral pulses Respiratory: CTAB, no wheezes, no rales, no ronchi, normal chest expansion Gastrointestinal: soft, non-tender, non-distended, normal bowel sounds, no palpable masses Extremities: no cyanosis Extremities - other findings: R knee with effusion, mild warmth to touch, extends to prox/anterior morris Skin: normal turgor Neurological: cranial nerve grossly intact, no focal deficits, no new deficit Musculoskeletal: normal tone, normal strength, no muscle wasting Psychiatric: normal affect, A&O x 3 Hosp A/P (1) Effusion, right knee Code(s): M25.461 - EFFUSION, RIGHT KNEE Status: Acute Plan: Sterile effusion per cx results, continue Cefepime/Vancomcycin, pain control, ROM excercises (2) Thrombocytosis Status: Chronic Plan: Persistent, suspect due to R knee effusion and SS disease (3) Leucocytosis Code(s): D72.829 - ELEVATED WHITE BLOOD CELL COUNT, UNSPECIFIED Status: Chronic Plan: Acute/subacute due to SS disease (4) Sickle cell anemia with crisis Code(s): D57.00 - HB-SS DISEASE WITH CRISIS, UNSPECIFIED Status: Acute Plan: Hydroxyurea for outpt use - Plan continue antibiotics, out of bed/ambulate Stable currently saline Lock IVF's Continue Morphine Sulfate IV Pain control as clinically indicated AM lab: H/H with platelets Likely home in am
[2019-07-27] MEDS: Morphine 4 MG/ML VIAL SLOW IVP PRN (16:09)
[2019-07-28] MEDS: Cefepime 1 GM in Sodium Chloride 0.9% 100 ML IVPB SCH ×2 (00:49→12:48)
[2019-07-28] MEDS: Vancomycin HCl 1 GM in Premix Bag 1 BAG IVPB SCH ×2 (02:01→13:43)
[2019-07-28] MEDS: oxyCODONE 5 MG TAB PO PRN ×5 (02:01→21:40)
[2019-07-28] MEDS: Morphine 4 MG/ML VIAL SLOW IVP PRN (05:17)
[2019-07-28] MEDS: Ketorolac Tromethamine 30 MG/ML VIAL IVP PRN (05:18)
[2019-07-28 06:34] LABS: Hemoglobin 8.6 g/dL (14.0-18.0); Platelet Count 667 thou/uL (130-400)
[2019-07-28] MEDS ORDERED: Senokot S 8.6-50 MG TAB PO PRN (08:45)
[2019-07-28] MEDS ORDERED: Ondansetron ODT 4 MG TAB PO PRN (08:45)
[2019-07-28] MEDS ORDERED: Sodium Chloride 0.65% Nasal 44 ML BOT EA NARE PRN (08:45)
[2019-07-28] MEDS ORDERED: hydrALAZINE 20 MG/ML VIAL SLOW IVP PRN (08:45)
[2019-07-28] MEDS ORDERED: Cepastat Lozenges 1 LOZ PO PRN (08:45)
[2019-07-28] MEDS ORDERED: Artificial Tears 18 DROP/0.9 ML EA EYE PRN (08:45)
[2019-07-28] MEDS ORDERED: Bisacodyl 10 MG SUPP PR PRN (08:45)
[2019-07-28] MEDS ORDERED: Loperamide HCl 2 MG CAP PO PRN (08:45)
[2019-07-28] MEDS ORDERED: Loratadine 10 MG TAB PO PRN (08:45)
[2019-07-28] MEDS ORDERED: Calcium Carbonate 500 MG ChewTAB PO PRN (08:45)
[2019-07-28] MEDS ORDERED: Diabetic Tussin 200 MG/10 ML UDCUP PO PRN (08:45)
[2019-07-28] MEDS: Famotidine 20 MG TAB PO SCH (09:04)
--- NOTE | 2019-07-28 10:53 | PDOC.HOSPP ---
- Subjective Encounter Date: 07/28/19 Encounter Time: 08:10 Subjective: Patient seen and examined. No new complaints. No overnight events still has pain - Objective Vital Signs & Weight: Vital Signs (12 hours) Temp Pulse Resp BP Pulse Ox 07/28/19 08:14 97.9 F 71 14 106/55 L 100 07/28/19 03:40 98.3 F 95 16 129/72 98 07/27/19 23:53 98.6 F 88 16 119/62 100 Weight Weight 175 lb I&O: 07/27/19 07/28/19 07/29/19 06:59 06:59 06:59 Intake Total 240 1074 Output Total 1525 1350 Balance -1285 -734 Result Diagrams: 07/28/19 06:23 07/25/19 05:26 Hospitalist ROS - Review of Systems Constitutional: denies: fever, chills, sweats, weakness, malaise, other Respiratory: denies: cough, dry, shortness of breath, hemoptysis, SOB with excertion, pleuritic pain, sputum, wheezing, other Cardiovascular: denies: chest pain, palpitations, orthopnea, paroxysmal noc. dyspnea, edema, light headedness, other Gastrointestinal: denies: nausea, vomiting, abdominal pain, diarrhea, constipation, melena, hematochezia, other Genitourinary: denies: dysuria, frequency, incontinence, hematuria, retention, other Musculoskeletal: reports: leg pain. denies: neck pain, shoulder pain, arm pain , back pain, hand pain, foot pain, other Skin: denies: rash, lesions, mary, bruising, other - Medication Medications: Active Medications Generic Name Dose Route Start Last Admin Trade Name Freq PRN Reason Stop Dose Admin Acetaminophen 650 mg 07/23/19 00:37 07/24/19 20:47 Tylenol PO 650 mg Q4H PRN Administration Headache/Fever/Mild Pain (1-3) Famotidine 20 mg 07/23/19 09:00 07/28/19 09:04 Pepcid PO 20 mg BID SIDDHARTHA Administration Cefepime HCl 1 gm/ Sodium 100 mls @ 200 mls/hr 07/23/19 01:00 07/28/19 00:49 Chloride IVPB 100 mls 0100,1300 SIDDHARTHA Administration Vancomycin HCl 1 gm/ Device 200 mls @ 200 mls/hr 07/23/19 14:00 07/28/19 02: 01 IVPB 200 mls 0200,1400 SIDDHARTHA Administration Morphine Sulfate 4 mg 07/24/19 13:51 07/28/19 05:17 Morphine SLOW IVP 4 mg Q4H PRN Administration Breakthrough Pain Oxycodone HCl 10 mg 07/24/19 13:50 07/28/19 09:06 Oxycodone Ir PO 10 mg Q4H PRN Administration pain 6-10 - Exam General Appearance: NAD, awake alert Eye: PERRL, anicteric sclera ENT: normocephalic atraumatic, no oropharyngeal lesions Neck: supple, symmetric, no JVD, no thyromegaly Heart: RRR, no murmur, no gallops, no rubs Respiratory: CTAB, no wheezes, no rales, no ronchi, normal chest expansion Gastrointestinal: soft, non-tender, non-distended, normal bowel sounds, no palpable masses Extremities: no cyanosis, no clubbing, no edema Skin: normal turgor, no lesions Neurological: normal sensation to touch, no weakness, no focal deficits Musculoskeletal: normal tone, normal strength Psychiatric: normal affect, normal behavior, A&O x 3 Hosp A/P (1) Chronic pain syndrome Code(s): G89.4 - CHRONIC PAIN SYNDROME Status: Acute (2) Effusion, right knee Code(s): M25.461 - EFFUSION, RIGHT KNEE Status: Acute (3) Sickle cell anemia with crisis Code(s): D57.00 - HB-SS DISEASE WITH CRISIS, UNSPECIFIED Status: Acute (4) Thrombocytosis Status: Chronic - Plan old records reviewed/req, continue antibiotics 07/28/19- pt is not comfortable to go home, continue pain control, will repeat labs tomorrow and re evaluate tomorrow
[2019-07-29] MEDS: Cefepime 1 GM in Sodium Chloride 0.9% 100 ML IVPB SCH ×2 (01:05→13:05)
[2019-07-29] MEDS: Famotidine 20 MG TAB PO SCH ×2 (01:11→08:29)
[2019-07-29] MEDS: Vancomycin HCl 1 GM in Premix Bag 1 BAG IVPB SCH ×2 (01:45→13:05)
[2019-07-29] MEDS: oxyCODONE 5 MG TAB PO PRN ×3 (01:48→10:13)
[2019-07-29 06:16] LABS: Band 1 % (5-11); Elliptocytes SLIGHT = 2-5 cells (100X) (0-1/hpf); Eosinophils 3 % (0-10); Hemoglobin 8.6 g/dL (14.0-18.0); Lymphocytes 22 % (21-51); MDiff Complete? YES; Mean Corpuscular Hemoglobin 29.3 pg (27.0-31.0); Mean Corpuscular Volume 88.8 fL (78.0-98.0); Mean Platelet Volume 6.6 fL (7.4-10.4); Metamyelocyte 2 % (0-0); Monocytes 6 % (0-10); Neutrophil 63 % (42-75); Platelet Count 619 thou/uL (130-400); Platelet Morphology Comment Appears Increased; RBC Distribution Width 18.7 % (11.5-14.5); Reactive Lymphocytes 2 % (0-10); Red Blood Cell (RBC) Count 2.94 mill/uL (4.70-6.10); Target Cells MODERATE= 6-15 cells (100X) (0-1/hpf); White Blood Cell (WBC) Count 16.4 thou/uL (4.8-10.8)
[2019-07-29 06:22] LABS: Anion Gap 11 mmol/L (10-20); BUN (Urea Nitrogen) 6 mg/dL (8.9-20.6); CRP (Inflammatory) 3.73 mg/dL (= or < 0.5); Calc. Creatinine Clearance 160 mL/min (70-130); Carbon Dioxide 24 mmol/L (22-29); Chloride 105 mmol/L (98-107); Estimated GFR-MDRD Greater than 90; Glucose 87 mg/dL (70-105); Potassium 4.3 mmol/L (3.5-5.1); Sodium 136 mmol/L (136-145); Uric Acid 4.4 mg/dL (3.5-7.2)
--- NOTE | 2019-07-29 10:01 | PDOC.HOSPP ---
- Subjective Encounter Date: 07/29/19 Encounter Time: 08:30 Subjective: Patient seen and examined. No new complaints. No overnight events - Objective Vital Signs & Weight: Vital Signs (12 hours) Temp Pulse Resp BP Pulse Ox 07/29/19 07:30 98.1 F 90 16 92/55 L 98 Weight Weight 175 lb I&O: 07/28/19 07/29/19 07/30/19 06:59 06:59 06:59 Intake Total 1074 3040 Output Total 1350 3400 Balance -276 -360 Result Diagrams: 07/29/19 05:47 07/29/19 05:47 Hospitalist ROS - Review of Systems ENT: denies: ear pain, ear discharge, nose pain, nose discharge, nose congestion , mouth pain, mouth swelling, throat pain, throat swelling, other Respiratory: denies: cough, dry, shortness of breath, hemoptysis, SOB with excertion, pleuritic pain, sputum, wheezing, other Cardiovascular: denies: chest pain, palpitations, orthopnea, paroxysmal noc. dyspnea, edema, light headedness, other Gastrointestinal: denies: nausea, vomiting, abdominal pain, diarrhea, constipation, melena, hematochezia, other Genitourinary: denies: dysuria, frequency, incontinence, hematuria, retention, other Musculoskeletal: denies: neck pain, shoulder pain, arm pain, back pain, hand pain, leg pain, foot pain, other - Medication Medications: Active Medications Generic Name Dose Route Start Last Admin Trade Name Freq PRN Reason Stop Dose Admin Acetaminophen 650 mg 07/23/19 00:37 07/24/19 20:47 Tylenol PO 650 mg Q4H PRN Administration Headache/Fever/Mild Pain (1-3) Famotidine 20 mg 07/23/19 09:00 07/29/19 08:29 Pepcid PO 20 mg BID SIDDHARTHA Administration Cefepime HCl 1 gm/ Sodium 100 mls @ 200 mls/hr 07/23/19 01:00 07/29/19 01:05 Chloride IVPB 100 mls 0100,1300 SIDDHARTHA Administration Vancomycin HCl 1 gm/ Device 200 mls @ 200 mls/hr 07/23/19 14:00 07/29/19 01: 45 IVPB 200 mls 0200,1400 SIDDHARTHA Administration Morphine Sulfate 4 mg 07/24/19 13:51 07/28/19 05:17 Morphine SLOW IVP 4 mg Q4H PRN Administration Breakthrough Pain Oxycodone HCl 10 mg 07/24/19 13:50 07/29/19 05:57 Oxycodone Ir PO 10 mg Q4H PRN Administration pain 6-10 - Exam General Appearance: NAD, awake alert Eye: PERRL, anicteric sclera ENT: normocephalic atraumatic, no oropharyngeal lesions Neck: supple, symmetric, no JVD, no thyromegaly Heart: RRR, no murmur, no gallops, no rubs Respiratory: CTAB, no wheezes, no rales, no ronchi Gastrointestinal: soft, non-tender, non-distended, normal bowel sounds Extremities: no cyanosis, no clubbing, no edema Skin: normal turgor, no lesions, no rashes Neurological: cranial nerve grossly intact, normal sensation to touch, no weakness, no focal deficits Musculoskeletal: normal tone, normal strength, no muscle wasting Psychiatric: normal affect, normal behavior, A&O x 3 Hosp A/P (1) Chronic pain syndrome Code(s): G89.4 - CHRONIC PAIN SYNDROME Status: Acute (2) Effusion, right knee Code(s): M25.461 - EFFUSION, RIGHT KNEE Status: Acute (3) Sickle cell anemia with crisis Code(s): D57.00 - HB-SS DISEASE WITH CRISIS, UNSPECIFIED Status: Acute (4) Thrombocytosis Status: Chronic - Plan old records reviewed/req, continue antibiotics 07/28/19- pt is not comfortable to go home, continue pain control, will repeat labs tomorrow and re evaluate tomorrow 07/29- omnicef for 5 days, discharge today
[2019-07-29 11:22] VITALS: BP 127/97; TEMP 98.7
--- NOTE | 2019-07-29 11:24 | DIS ---
DATE OF ADMISSION: 07/22/2019 DATE OF DISCHARGE: 07/29/2019 PRIMARY CARE PHYSICIAN: Dr. Laura. DISCHARGE DISPOSITION: Home. PRIMARY DISCHARGE DIAGNOSES: 1. Sickle cell pain crisis. 2. Leukocytosis of unclear etiology. 3. Right knee effusion, sterile rule out infection. SECONDARY DISCHARGE DIAGNOSIS: Sickle cell anemia. PRIMARY PROCEDURE/OPERATION: Right knee effusion, arthrocentesis. RADIOLOGICAL INVESTIGATION: Chest x-ray, knee x-ray, ultrasound lower extremity. SIGNIFICANT LABORATORY DATA: Hemoglobin 8.6. Creatinine 0.69. CRP 3.73. Urinalysis unremarkable. Blood culture negative. DISCHARGE MEDICATIONS: The patient will continue his pain medication oxycodone 10 mg as needed for pain, folic acid 1 mg p.o. daily, Omnicef 300 mg p.o. b.i.d. for 5 days. CONTRAINDICATION: None. CODE STATUS: Full code. INPATIENT FRINGE MAKER: Naomie Melgar with Hematology was consulted while in hospital, Bennett Drew with Orthopedic was consulted while in hospital. TEST RESULT PENDING ON DISCHARGE: None. ALLERGIES: NO KNOWN DRUG ALLERGIES. DISCHARGE PLAN: Posthospital, the patient will follow up with primary care physician. The patient is instructed to follow up with Hematology. HOSPITAL COURSE: A 39-year-old male with above-mentioned medical problem, who was admitted by Dr. Candelaria. Please see his H and P for further details. The patient was having sickle cell painful crisis. He was having right knee swelling and pain, which was drained in the emergency room and cultures were negative. Orthopedic was consulted while in hospital. He was empirically treated with antibiotic therapy. His pain crisis was controlled with pain medication while in hospital. His culture remained negative. We finished total course of antibiotic therapy while in hospital as well as we are giving five days of oral antibiotic therapy. The patient is ambulatory and his pain is controlled with pain medication. We started folic acid and we also recommended to follow up with Hematology for his sickle cell disease. He has leukocytosis and that is probably related with bone infarction, but he does not have any obvious clinical infection. The patient is medically stable for discharge today. The patient is seen and examined at bedside today. Please see my progress note from today for further detail. Job ID: [id number]
--- NOTE | 2019-08-01 05:10 | PQF ---
SAMUEL BAL SALIM NOORJIBHAI MD [id number] [facility] A [id number] CLINICAL DOCUMENTATION CLARIFICATION FORM: POST DISCHARGE Addendum to original discharge summary date: ____ Late entry note date: __ DATE: 08-01-2019 ATTN:Reyna Irby Please exercise your independent, professional judgment in responding to the clarification form. Clinical indicators are provided on the bottom of this form for your review Can you please specify whether septic joint is ruled in or ruled out during this encounter? Please check appropriate box(s) to clarify if the following diagnosis has been ruled in or ruled out: Septic joint [ ] Ruled in diagnosis [ ] Continue to treat [ ] Resolved [ x ] Ruled out diagnosis [ ] Cannot rule out diagnosis [ ] Other diagnosis please specify: [ ] Unable to determine For continuity of documentation, please document condition throughout progress notes and discharge summary. Thank You. CLINICAL INDICATORS: H&P p1 6/15- Right knee pain and swelling H&P p1 6/15- Elevated WBC count 26,000, febrile, elevated reticulocyte count 9 H&P p1 615- Performed a ta[ or R knee and initial result showed moderate WBC but no organism RISK FACTOR: H&P p1 6/15-HX of MRSA infecrion of the left knee H&P p1 6/15-Sickle cell disease H&P p2 6/15-Septic joint knee TREATMENTS: H&P p2 6/15-Start IV Vancomycin and Cefepime H&P p2 6/15-Septic workup H&P p2 6/15-Pain management (This form is maintained as a part of the permanent medical record) 2014 [employer] All Rights Reserved Gay [email or web address] [not provided] [email or web address]
== END 2019-07-29 13:24 | disposition home or self-care (01) | DRG 564 ==
LOC: SCSER 17:45 → SURG A 21:31
PROVIDERS: ADMIT Internal Medicine; ATTEND Internal Medicine
PROC: 0S9C3ZZ Drainage of Right Knee Joint, Percutaneous Approach (ICD-10-PCS; principal; 2019-07-22)
DX: M25.461 Effusion, right knee (principal); D57.00 Hb-SS disease with crisis, unspecified; F17.200 Nicotine dependence, unspecified, uncomplicated; G89.4 Chronic pain syndrome; D47.3 Essential (hemorrhagic) thrombocythemia; D72.829 Elevated white blood cell count, unspecified; Z96.642 Presence of left artificial hip joint; Z79.891 Long term (current) use of opiate analgesic; Z86.14 Personal history of Methicillin resistant Staphylococcus aureus infection
CPT/HCPCS: 36415; 71045; 80048; 80053; 80202; 81003; 81015; 83605; 84165; 84550; 85007; 85014; 85018; 85025; 85027; 85046; 85049; 86140; 87040; 87070; 87205; 96361; 96365; 96367; 96375; 96376; J0692; J1885; J2001; J2270; J2405; J2543; J3370; J3490